=== PATIENT | male | born 1980 | race American Indian/Alaskan Native ===

== ENCOUNTER 2021-04-03 14:45 | Emergency (ER) | payer MEDICAID ==
--- NOTE | 2021-04-03 15:40 | Emergency Department Report ---
- General Chief complaint: Weakness Stated complaint: WEAKNESS Time Seen by Provider: 04/03/21 15:00 Source: patient, RN/MD, EMS Mode of arrival: Stretcher Limitations: Physical Limitation - History of Present Illness Initial comments: Patient is a 41-year-old male presents emergency room complaints of diarrhea over the last couple of days. He states he has some mild abdominal discomfort. He reports that he is also been having a cough and mild shortness of breath. He denies any fever, nausea, vomiting, hematochezia, melena, hematemesis, urinary symptoms. Patient was sent from his personal longterm due to weakness and not eating according to nurse. Patient reports he has a history of schizophrenia and CVA. He denies any SI or HI. He denies any alcohol use. He states he is a smoker. - Related Data Previous Rx's Medication Instructions Recorded Last Taken Type Hyoscyamine Subl [Levsin Sl 0.125 0.125 mg SL Q6HR PRN #10 tab 04/03/21 Unknown Rx TAB] Allergies Allergy/AdvReac Type Severity Reaction Status Date / Time No Known Allergies Allergy Unverified 04/03/21 15:02 ED Review of Systems ROS: Stated complaint: WEAKNESS Other details as noted in HPI Comment: All other systems reviewed and negative ED Past Medical Hx - Medications Home Medications: Home Medications Medication Instructions Recorded Confirmed Last Taken Type Hyoscyamine Subl [Levsin Sl 0.125 0.125 mg SL Q6HR PRN #10 tab 04/03/21 Unknown Rx TAB] ED Physical Exam - General Limitations: Physical Limitation General appearance: alert, in no apparent distress - Head Head exam: Present: atraumatic, normocephalic - Eye Eye exam: Present: normal appearance - ENT ENT exam: Present: mucous membranes dry - Respiratory Respiratory exam: Present: normal lung sounds bilaterally. Absent: respiratory distress, wheezes, rales, rhonchi, stridor, chest wall tenderness, accessory muscle use, decreased breath sounds, prolonged expiratory - Cardiovascular Cardiovascular Exam: Present: regular rate, normal rhythm, normal heart sounds. Absent: systolic murmur, diastolic murmur, rubs, gallop - GI/Abdominal GI/Abdominal exam: Present: soft, normal bowel sounds. Absent: distended, tenderness, guarding, rebound, rigid - Neurological Exam Neurological exam: Present: alert, oriented X3 - Psychiatric Psychiatric exam: Present: normal affect, normal mood - Skin Skin exam: Present: warm, dry, intact ED Course Vital Signs 04/03/21 15:01 Temperature 97.9 F Pulse Rate 80 Respiratory 18 Rate Blood Pressure 140/86 [Left] O2 Sat by Pulse 100 Oximetry - Reevaluation(s) Reevaluation #1: 04/03/21 17:36 I was advised by nursing staff that patient became combative in CT, I went to speak with patient and he is also very argumentative with me and states that we are not helping him, I believe his combativeness could be due to his underlying history of schizophrenia, patient given Ativan and Geodon to hopefully obtain CT study ED Medical Decision Making - Lab Data Result diagrams: 04/03/21 15:37 04/03/21 15:37 Lab Results 04/03/21 04/03/21 04/03/21 Range/Units 15:37 15:37 15:42 WBC 5.6 (4.5-11.0) K/mm3 RBC 4.52 (3.65-5.03) M/mm3 Hgb 12.6 (11.8-15.2) gm/dl Hct 39.6 (35.5-45.6) % MCV 88 (84-94) fl MCH 28 (28-32) pg MCHC 32 (32-34) % RDW 15.7 H (13.2-15.2) % Plt Count 69 L (140-440) K/mm3 Lymph % (Auto) 7.5 L (13.4-35.0) % Ada % (Auto) 21.2 H (0.0-7.3) % Eos % (Auto) 3.1 (0.0-4.3) % Baso % (Auto) 0.4 (0.0-1.8) % Lymph # (Auto) 0.4 L (1.2-5.4) K/mm3 Ada # (Auto) 1.2 H (0.0-0.8) K/mm3 Eos # (Auto) 0.2 (0.0-0.4) K/mm3 Baso # (Auto) 0.0 (0.0-0.1) K/mm3 Seg Neutrophils % 67.8 (40.0-70.0) % Seg Neutrophils # 3.9 (1.8-7.7) K/mm3 Sodium 145 (137-145) mmol/L Potassium 4.1 (3.6-5.0) mmol/L Chloride 109.0 H (98-107) mmol/L Carbon Dioxide 21 L (22-30) mmol/L Anion Gap 19 mmol/L BUN 20 (9-20) mg/dL Creatinine 0.7 L (0.8-1.3) mg/dL Estimated GFR > 60 ml/min BUN/Creatinine Ratio 29 % Glucose 110 H (75-100) mg/dL Calcium 8.8 (8.4-10.2) mg/dL Magnesium 2.30 (1.7-2.3) mg/dL Total Bilirubin 0.70 (0.1-1.2) mg/dL AST 124 H (5-40) units/L ALT 85 H (7-56) units/L Alkaline Phosphatase 225 H (35-129) units/L Total Creatine Kinase 165 (55-170) units/L Troponin T < 0.010 (0.00-0.029) ng/mL NT-Pro-B Natriuret Pep 42.14 (0-450) pg/mL Total Protein 7.7 (6.3-8.2) g/dL Albumin 3.5 L (3.9-5) g/dL Albumin/Globulin Ratio 0.8 % Lipase 55 (13-60) units/L Urine Color (Yellow) Urine Turbidity (Clear) Urine pH (5.0-7.0) Ur Specific [place] (1.003-1.030) Urine Protein (Negative) mg/dL Urine Glucose (UA) (Negative) mg/dL Urine Ketones (Negative) mg/dL Urine Blood (Negative) Urine Nitrite (Negative) Urine Bilirubin (Negative) Urine Urobilinogen (<2.0) mg/dL Ur Leukocyte Esterase (Negative) Urine WBC (Auto) (0.0-6.0) /HPF Urine RBC (Auto) (0.0-6.0) /HPF U Epithel Cells (Auto) (0-13.0) /HPF Urine Mucus /HPF 04/03/21 Range/Units 18:26 WBC (4.5-11.0) K/mm3 RBC (3.65-5.03) M/mm3 Hgb (11.8-15.2) gm/dl Hct (35.5-45.6) % MCV (84-94) fl MCH (28-32) pg MCHC (32-34) % RDW (13.2-15.2) % Plt Count (140-440) K/mm3 Lymph % (Auto) (13.4-35.0) % Ada % (Auto) (0.0-7.3) % Eos % (Auto) (0.0-4.3) % Baso % (Auto) (0.0-1.8) % Lymph # (Auto) (1.2-5.4) K/mm3 Ada # (Auto) (0.0-0.8) K/mm3 Eos # (Auto) (0.0-0.4) K/mm3 Baso # (Auto) (0.0-0.1) K/mm3 Seg Neutrophils % (40.0-70.0) % Seg Neutrophils # (1.8-7.7) K/mm3 Sodium (137-145) mmol/L Potassium (3.6-5.0) mmol/L Chloride (98-107) mmol/L Carbon Dioxide (22-30) mmol/L Anion Gap mmol/L BUN (9-20) mg/dL Creatinine (0.8-1.3) mg/dL Estimated GFR ml/min BUN/Creatinine Ratio % Glucose (75-100) mg/dL Calcium (8.4-10.2) mg/dL Magnesium (1.7-2.3) mg/dL Total Bilirubin (0.1-1.2) mg/dL AST (5-40) units/L ALT (7-56) units/L Alkaline Phosphatase (35-129) units/L Total Creatine Kinase (55-170) units/L Troponin T (0.00-0.029) ng/mL NT-Pro-B Natriuret Pep (0-450) pg/mL Total Protein (6.3-8.2) g/dL Albumin (3.9-5) g/dL Albumin/Globulin Ratio % Lipase (13-60) units/L Urine Color [place] (Yellow) Urine Turbidity Clear (Clear) Urine pH 6.0 (5.0-7.0) Ur Specific [place] 1.023 (1.003-1.030) Urine Protein 100 mg/dl (Negative) mg/dL Urine Glucose (UA) Neg (Negative) mg/dL Urine Ketones Neg (Negative) mg/dL Urine Blood Sm (Negative) Urine Nitrite Neg (Negative) Urine Bilirubin Neg (Negative) Urine Urobilinogen 2.0 (<2.0) mg/dL Ur Leukocyte Esterase Neg (Negative) Urine WBC (Auto) 3.0 (0.0-6.0) /HPF Urine RBC (Auto) 3.0 (0.0-6.0) /HPF U Epithel Cells (Auto) < 1.0 (0-13.0) /HPF Urine Mucus Few /HPF Vital Signs - 24 hr 04/03/21 15:01 Temperature 97.9 F Pulse Rate 80 Respiratory 18 Rate Blood Pressure 140/86 [Left] O2 Sat by Pulse 100 Oximetry - EKG Data EKG shows normal: sinus rhythm, axis, intervals Rate: normal - EKG Data 04/03/21 17:59 non specific T wave inversion diffusely no STEMI - Radiology Data Radiology results: report reviewed Ordering Physician: JEZ DANIELLE Date of Service: 04/03/21 Procedure(s): XR chest 1V ap Accession Number(s): [id number] cc: JEZ DANIELLE Fluoro Time In Minutes: CHEST 1 VIEW 04/03/2021 4:42 PM INDICATION / CLINICAL INFORMATION: weakness, cough, diarrhea. COMPARISON: None available. FINDINGS: SUPPORT DEVICES: None. HEART / MEDIASTINUM: No significant abnormality. LUNGS / PLEURA: No significant pulmonary or pleural abnormality. No pneumothorax. ADDITIONAL FINDINGS: No significant additional findings. IMPRESSION: 1. No acute findings. Signer Name: Nadir Cook MD Signed: 04/03/2021 3:56 PM Workstation Name: [id number] Transcribed By: DB Dictated By: NADIR COOK MD Electronically Authenticated By: NADIR COOK MD Signed Date/Time: 04/03/211555 DD/ 54 TD/TT: Ordering Physician: JEZ DANIELLE Date of Service: 04/03/21 Procedure(s): CT abdomen pelvis w con Accession Number(s): [id number] cc: JEZ DANIELLE CT ABDOMEN AND PELVIS WITH CONTRAST INDICATION / CLINICAL INFORMATION: Diarrhea. Abdominal pain. TECHNIQUE: Axial CT images were obtained through the abdomen and pelvis after O mnipaque 300, [address] scans at this location are performed using CT dose reducti on for MEGAN by means of automated exposure control. COMPARISON: None available. FINDINGS: LOWER CHEST: No significant abnormality. LIVER: No significant abnormality. GALLBLADDER: No significant abnormality. BILE DUCTS: No significant abnormality. PANCREAS: No significant abnormality. 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 No discrete lesion. ADRENALS: No significant abnormality. RIGHT KIDNEY / URETER: No significant abnormality. LEFT KIDNEY / URETER: No significant abnormality. STOMACH / SMALL BOWEL: No significant abnormality. COLON: No significant abnormality. APPENDIX: No significant abnormality. PERITONEUM: No free fluid. No free air. No fluid collection. LYMPH NODES: No significant adenopathy. VASCULAR STRUCTURES: No significant abnormality. URINARY BLADDER: No significant abnormality. REPRODUCTIVE ORGANS: No significant abnormality. ADDITIONAL FINDINGS: None. SKELETAL SYSTEM: No significant abnormality. IMPRESSION: 1. Negative for obstruction or localized inflammation. 2. Probable previous splenic injury. No acute or significant splenic abnormality is identified. Signer Name: Jonah Jenkins MD Signed: 04/03/2021 6:51 PM Workstation Name: [id number] Transcribed By: ES Dictated By: Jonah Jenkins MD Electronically Authenticated By: Jonah Jenkins MD Signed Date/Time: 04/03/211850 DD/ 47 TD/TT: - Medical Decision Making Patient is a 41-year-old male presents emergency room complaints of diarrhea over the last couple of days. He states he has some mild abdominal discomfort. He reports that he is also been having a cough and mild shortness of breath. He denies any fever, nausea, vomiting, hematochezia, melena, hematemesis, urinary symptoms. Patient was sent from his personal longterm due to weakness and not eating according to nurse. Patient reports he has a history of schizophrenia and CVA. He denies any SI or HI. He denies any alcohol use. He states he is a smoker. VSS. No abdominal tenderness on exam, no guarding, no rebound, no rigidity, no peritoneal signs. Labs with mildly elevated LFTs. UA was within normal limits. CXR:1. No acute findings. CT abd pelvis with IV contrast: 1. Negative for obstruction or localized inflammation. 2. Probable previous splenic injury. No acute or significant splenic abnormality is id entified. Patient given medications in the emergency department. Patient be referred to primary care doctor and GI doctor. Advised patient Please take medication as prescribed. Increase your fluid intake. Please eat a bland liquid diet and slowly diet as tolerated. Follow-up with primary care doctor. Follow-up with a GI doctor. return to emergency room for any new or worsening symptoms. Critical care attestation.: If time is entered above; I have spent that time in minutes in the direct care of this critically ill patient, excluding procedure time. ED Disposition Clinical Impression: Weakness, Abdominal discomfort, Cough, SOB (shortness of breath), Elevated LFTs Diarrhea Qualifiers: Diarrhea type: unspecified type Qualified Code(s): R19.7 - Diarrhea, unspecified Disposition: HOME / SELF CARE / HOMELESS Is pt being admited?: No Does the pt Need Aspirin: No Condition: Stable Instructions: Diarrhea, Adult Additional Instructions: Please take medication as prescribed. Increase your fluid intake. Please eat a bland liquid diet and slowly diet as tolerated. Follow-up with primary care do ctor. Follow-up with a GI doctor. return to emergency room for any new or worsening symptoms. Prescriptions: Hyoscyamine Subl [Levsin Sl 0.125 TAB] 0.125 mg SL Q6HR PRN #10 tab PRN Reason: diarrhea Referrals: PRIMARY CAREMD [Primary Care Provider] - 3-5 Days [facility] [Provider Group] - 3-5 Days Time of Disposition: 19:49 Print Language: GEORGIAN
--- NOTE | 2021-04-03 16:00 | XRay Report ---
CHEST 1 VIEW 04/03/2021 4:42 PM INDICATION / CLINICAL INFORMATION: weakness, cough, diarrhea. COMPARISON: None available. FINDINGS: SUPPORT DEVICES: None. HEART / MEDIASTINUM: No significant abnormality. LUNGS / PLEURA: No significant pulmonary or pleural abnormality. No pneumothorax. ADDITIONAL FINDINGS: No significant additional findings. IMPRESSION: 1. No acute findings. Signer Name: Nadir Cook MD Signed: 04/03/2021 3:56 PM Workstation Name: [id number]
[2021-04-03 16:06] LABS: Eosinophils % (Auto) 3.1 % (0.0-4.3)
[2021-04-03 16:20] LABS: Alanine Aminotransferase 85 units/L (7-56); Albumin 3.5 g/dL (3.9-5); Blood Urea Nitrogen 20 mg/dL (9-20); Calcium 8.8 mg/dL (8.4-10.2); Hemolysis Index 8
[2021-04-03 16:21] LABS: BUN/Creatinine Ratio 29
[2021-04-03] MEDS ORDERED: SODIUM CHLORIDE 0.9% 1000 ML 1,000 ML IV ONE (16:39)
[2021-04-03] MEDS ORDERED: HYOSCYAMINE SUBL 0.125 MG TAB SL ONE (16:39)
[2021-04-03 16:53] LABS: Hematocrit 39.6 % (35.5-45.6); Hemoglobin 12.6 gm/dl (11.8-15.2); Mean Corpuscular HGB Conc 32 % (32-34); Mean Corpuscular Volume 88 fl (84-94); Red Blood Count 4.52 M/mm3 (3.65-5.03)
[2021-04-03 16:54] LABS: Basophils % (Auto) 0.4 % (0.0-1.8); Eosinophils # (Auto) 0.2 K/mm3 (0.0-0.4); Lymphocytes # (Auto) 0.4 K/mm3 (1.2-5.4); Lymphocytes % (Auto) 7.5 % (13.4-35.0); Monocytes # (Auto) 1.2 K/mm3 (0.0-0.8); Monocytes % (Auto) 21.2 % (0.0-7.3); Platelet Count 69 K/mm3 (140-440); Red Cell Distribution Width 15.7 % (13.2-15.2)
[2021-04-03] MEDS ORDERED: ZIPRASIDONE MESYLATE 20 MG VIAL IM ONE (17:36)
[2021-04-03] MEDS ORDERED: LORazepam 2 MG/ML VIAL IV ONE (17:36)
--- NOTE | 2021-04-03 18:55 | Cat Scan Report ---
CT ABDOMEN AND PELVIS WITH CONTRAST INDICATION / CLINICAL INFORMATION: Diarrhea. Abdominal pain. TECHNIQUE: Axial CT images were obtained through the abdomen and pelvis after Omnipaque 300, 100 cc I V contrast. All CT scans at this location are performed using CT dose reduction for ALARA by means o f automated exposure control. COMPARISON: None available. FINDINGS: LOWER CHEST: No significant abnormality. LIVER: No significant abnormality. GALLBLADDER: No significant abnormality. BILE DUCTS: No significant abnormality. PANCREAS: No significant abnormality. 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 No discret e lesion. ADRENALS: No significant abnormality. RIGHT KIDNEY / URETER: No significant abnormality. LEFT KIDNEY / URETER: No significant abnormality. STOMACH / SMALL BOWEL: No significant abnormality. COLON: No significant abnormality. APPENDIX: No significant abnormality. PERITONEUM: No free fluid. No free air. No fluid collection. LYMPH NODES: No significant adenopathy. VASCULAR STRUCTURES: No significant abnormality. URINARY BLADDER: No significant abnormality. REPRODUCTIVE ORGANS: No significant abnormality. ADDITIONAL FINDINGS: None. SKELETAL SYSTEM: No significant abnormality. IMPRESSION: 1. Negative for obstruction or localized inflammation. 2. Probable previous splenic injury. No acute or significant splenic abnormality is identified. Signer Name: Jonah Jenkins MD Signed: 04/03/2021 6:51 PM Workstation Name: [id number]
[2021-04-03 19:42] LABS: Bilirubin,Urine NEG (Negative); Blood,Urine SM (Negative); Color,Urine Amber (Yellow); Mucus,Urine FEW /HPF
--- NOTE | 2021-04-04 11:42 | Electrocardiograph Report ---
[facility] Test Date: 2021-04-03 Test Time: 16:44:17 Pat Name: FATIMAH RUDOLPH Department: Room: Gender: M [employer] Work[employer]: APURVA : 1980 Requested By: ARASH BREWER Order Number: [id number] Reading MD: Anthony Watts Measurements Intervals [place] Rate: 92 P: 88 SD: 158 QRS: 61 QRSD: 96 T: 97 QT: 381 QTc: 473 Interpretive Statements Sinus rhythm Nonspecific T abnrm, anterolateral leads No previous ECG available for comparison Electronically Signed On 04-04-2021 11:42:38 EST by Anthony Watts
[2021-04-04 12:02] VITALS: BP 118/78
== END 2021-04-04 11:10 | disposition home or self-care (01) ==
LOC: ED 14:45
DX: R53.1 Weakness (principal); R10.9 Unspecified abdominal pain; R05.9 Cough, unspecified; R06.02 Shortness of breath; R94.5 Abnormal results of liver function studies; R19.7 Diarrhea, unspecified
CPT/HCPCS: 36415; 71045; 74177; 80053; 81001; 82550; 83690; 83735; 83880; 84484; 85025; 93005; 96361; 96372; 96374; 99285; J2060; J3486; J7030; Q9967; Q0162